=== PATIENT | female | born 1985 | race Caucasian/White ===

== ENCOUNTER 2016-09-26 20:11 | Inpatient (IN) | payer OTHER ==
[2016-09-26 20:45] LABS: HCT 33.6 % (37.0-47.0); HGB 11.6 g/dl (12.5-16.0); MCH 32.8 pg (25.0-31.0); MCHC 34.5 g/dL (32.0-36.0); MCV 94.9 fL (78.0-100.0); MPV 11.3 fL (6.0-9.5); RBC 3.54 M/uL (4.20-5.40); RDW 13.7 % (11.5-14.0); WBC 10.7 K/uL (4.0-10.5)
[2016-09-26 20:46] LABS: BILIRUBIN NEGATIVE (NEGATIVE); BLOOD NEGATIVE Ery/uL (NEGATIVE); CLARITY CLEAR (CLEAR); COLOR YELLOW (YELLOW); GLUCOSE (U) NORMAL (NORMAL); KETONE (U) NEGATIVE (NEGATIVE); LEUKOCYTES 2+ Leu/uL (NEGATIVE); NITRITE NEGATIVE (NEGATIVE); PROTEIN NEGATIVE (NEGATIVE); SPECIFIC GRAVITY <=1.005 (1.001-1.030); UROBILINOGEN 0.2 mg/dL (0.2-1.0)
[2016-09-26 20:50] LABS: BACTERIA 1+
[2016-09-26 21:01] LABS: AMPHETAMINES NEGATIVE (NEGATIVE); BARBITURATES NEGATIVE (NEGATIVE); BENZODIAZEPINES NEGATIVE (NEGATIVE); COCAINE NEGATIVE (NEGATIVE); MARIJUANA (THC) POSITIVE (NEGATIVE); METHADONE NEGATIVE (NEGATIVE); TRICYCLIC ANTIDEPRESSANT NEGATIVE (NEGATIVE)
[2016-09-26 21:12] LABS: ALBUMIN 3.6 g/dL (3.5-5.0); BILIRUBIN - TOTAL 0.3 mg/dL (0.1-1.0); CREATININE 0.5 mg/dL (0.5-1.0); GLOBULIN (CALCULATION) 2.5 g/dL (2.2-4.2); POTASSIUM 2.9 mmol/L (3.5-5.1); TOTAL PROTEIN 6.1 g/dL (6.4-8.3); URIC ACID 4.3 mg/dL (2.4-5.7)
[2016-09-28 05:44] LABS: HCT 30.6 % (37.0-47.0); HGB 10.4 g/dl (12.5-16.0); MCH 32.7 pg (25.0-31.0); MCV 96.2 fL (78.0-100.0); MPV 11.1 fL (6.0-9.5); RBC 3.18 M/uL (4.20-5.40); RDW 13.7 % (11.5-14.0); WBC 12.5 K/uL (4.0-10.5)
== END 2016-09-29 10:49 | disposition home or self-care (01) | DRG 775 ==
LOC: FOB 20:11
PROVIDERS: ADMIT Obstetrics & Gynecology
PROC: 3E0P7GC Introduction of Other Therapeutic Substance into Female Reproductive, Via Natural or Artificial Opening (ICD-10-PCS; principal; 2016-09-27)
PROC: 10E0XZZ Delivery of Products of Conception, External Approach (ICD-10-PCS; 2016-09-27)
PROC: 10907ZC Drainage of Amniotic Fluid, Therapeutic from Products of Conception, Via Natural or Artificial Opening (ICD-10-PCS; 2016-09-27)
PROC: 4A1HX4Z Monitoring of Products of Conception, Cardiac Electrical Activity, External Approach (ICD-10-PCS; 2016-09-27)
DX: O24.429 Gestational diabetes mellitus in childbirth, unspecified control (principal); K50.10 Crohn's disease of large intestine without complications; Z3A.39 39 weeks gestation of pregnancy; Z37.0 Single live birth; Z91.19 Patient's noncompliance with other medical treatment and regimen; O99.824 Streptococcus B carrier state complicating childbirth; F41.8 Other specified anxiety disorders; O99.02 Anemia complicating childbirth; D64.9 Anemia, unspecified; F17.210 Nicotine dependence, cigarettes, uncomplicated; F12.10 Cannabis abuse, uncomplicated; Z83.3 Family history of diabetes mellitus; Z81.8 Family history of other mental and behavioral disorders
CPT/HCPCS: 36415; 80053; 80305; 81001; 82962; 83615; 84550; 88307; J2300; J2540

== ENCOUNTER 2021-03-08 18:09 | Emergency (ER) | payer OTHER ==
[~2021-03-08 18:09] MED LIST: MEDROL 4MG DOSEP4 MG PO
[2021-03-08 20:06] LABS: BASOPHIL 0.2 % (0-2); EOSINOPHIL 1.6 % (0-5); HCT 36.5 % (37.0-47.0); HGB 12.2 g/dl (12.5-16.0); MCH 31.3 pg (25.0-31.0); MCHC 33.4 g/dL (32.0-36.0); MCV 93.6 fL (78.0-100.0); MONOCYTE 4.5 % (0-12); NRBC 0; PLT 271 K/uL (150-400); RDW 12.1 % (11.5-14.0); WBC 8.9 K/uL (4.0-10.5)
[2021-03-08 20:14] LABS: LYMPHOCYTE 36.4 % (15-48)
[2021-03-08 20:15] LABS: NEUTROPHIL 57.2 % (41-80)
[2021-03-08 20:18] LABS: INR 0.96 (0.9-1.2); PROTHROMBIN TIME 12.2 SECONDS (11.8-13.4); PTT 34.6 SECONDS (24.4-34.7)
[2021-03-08 20:22] LABS: ALBUMIN 3.8 g/dL (3.4-5.0); BILIRUBIN - TOTAL 0.3 mg/dL (0.2-1.0); CREATININE 0.82 mg/dL (0.51-0.95); GLOBULIN (CALCULATION) 3.2 g/dL; MAGNESIUM 2.3 mg/dL (1.8-2.4)
== END 2021-03-08 21:30 | disposition home or self-care (01) ==
LOC: FER 18:09
PROVIDERS: Emergency Medicine
DX: I10 Essential (primary) hypertension (principal); F17.210 Nicotine dependence, cigarettes, uncomplicated
CPT/HCPCS: 36415; 70450; 80053; 83615; 83735; 85025; 85610; 85730; 93005; J1170; J2765; J3490